=== PATIENT | female | born 1990 | race Hispanic/Latino ===

== ENCOUNTER 2022-05-14 05:44 | Inpatient (IN) | payer OTHER ==
[2022-05-12 12:06] LABS: Hematocrit 30.9 % (30.3-42.9); Hemoglobin 10.3 gm/dl (10.1-14.3); Mean Corpuscular HGB Conc 33 % (30-34); Mean Corpuscular Volume 88 fl (79-97); Platelet Count 250 K/mm3 (140-440); Red Blood Count 3.51 M/mm3 (3.65-5.03)
--- NOTE | 2022-05-13 20:22 | History and Physical Report ---
History of Present Illness Date of examination: 05/06/22 Date of admission: 05/14/2022 Chief complaint: section History of present illness: Patient is a for repeat section and bilateral salpingectomy. Voices no complaints. +FM. Denies contractions, leakage of fluid, and vaginal bleeding. Past History Past Medical History: no pertinent history Past Surgical History: section Family/Genetic History: hypertension, cancer Social history: no significant social history - Obstetrical History : 6 Para: 1 Hx # Term Pregnancies: 1 Number of Pregnancies: 9 Spontaneous Abortions: 4 Induced : 0 Number of Living Children: 1 Medications and Allergies Allergies Allergy/AdvReac Type Severity Reaction Status Date / Time No Known Allergies Allergy Unverified 05/08/22 16:55 Home Medications Medication Instructions Recorded Confirmed Last Taken Type ALPRAZolam [Xanax TAB] 0.5 mg PO BID PRN 05/12/22 05/12/22 Unknown History - Vital Signs Vital signs: Vital Signs Temp Pulse Resp BP Pulse Ox 99 F 92 H 16 136/73 98 05/12/22 11:20 05/12/22 11:20 05/12/22 11:20 05/12/22 11:20 05/12/22 11:20 Temp Pulse Resp BP Pulse Ox 99 F 92 H 16 136/73 98 05/12/22 11:20 05/12/22 11:20 05/12/22 11:20 05/12/22 11:20 05/12/22 11:20 - Physical Exam Abdomen: Positive: normal appearance, soft, normal bowel sounds. Negative: distention, tenderness Extremities: - Obstetrical FHR: category 1 Uterine Contraction Monitor Mode: External Uterine Contraction Pattern: Absent Results Result Diagrams: 05/14/22 06:25 All other labs normal. Assessment and Plan Patient for repeat section and bilateral salpingectomy Risks of procedure reviewed including pain, bleeding, infection, damage to surrounding tissues and structures, need for further procedures. Consents signed Ancef 2 g preop antibiotics Type and screen, CBC TO OR as scheduled - Patient Problems (1) 39 weeks gestation of Current Visit: Yes Status: Acute (2) History of delivery Current Visit: Yes Status: Acute (3) Sterilization Current Visit: Yes Status: Acute
[2022-05-14] MEDS ORDERED: LACTATED RINGERS 1,000 ML ONE ×2 (06:19→08:34)
[2022-05-14 06:43] LABS: Basophils % (Auto) 0.3 % (0.0-1.8); Eosinophils # (Auto) 0.3 K/mm3 (0.0-0.4); Eosinophils % (Auto) 2.7 % (0.0-4.3); Hematocrit 32.7 % (30.3-42.9); Hemoglobin 10.9 gm/dl (10.1-14.3); Lymphocytes # (Auto) 2.7 K/mm3 (1.2-5.4); Lymphocytes % (Auto) 27.5 % (13.4-35.0); Mean Corpuscular HGB Conc 33 % (30-34); Mean Corpuscular Volume 88 fl (79-97); Monocytes # (Auto) 0.8 K/mm3 (0.0-0.8); Monocytes % (Auto) 7.7 % (0.0-7.3); Platelet Count 258 K/mm3 (140-440); Red Blood Count 3.71 M/mm3 (3.65-5.03); Red Cell Distribution Width 13.5 % (13.2-15.2)
--- NOTE | 2022-05-14 06:57 | Anesthesia Day of Surgery ---
Anesthesia Day of Surgery - Day of Surgery Patient Examined: Yes Patient H&P Reviewed: Yes Patient is NPO: Yes
--- NOTE | 2022-05-14 06:57 | Anesthesia Consultation ---
Anesthesia Consult and Med Hx Date of service: 05/14/22 - Airway Anesthetic Teeth Evaluation: Good ROM Head & Neck: Adequate Mental/Hyoid Distance: Adequate Mallampati Class: Class II Intubation Access Assessment: Good - Pulmonary Exam CTA: Yes - Cardiac Exam Cardiac Exam: RRR - Pre-Operative Health Status ASA Pre-Surgery Classification: ASA2 Proposed Anesthetic Plan: Spinal (h/o anxiety) - Pulmonary Hx Smoking: Yes Hx Asthma: No - Cardiovascular System Hx Hypertension: No - Central Nervous System Hx Seizures: No Hx Psychiatric Problems: No - Endocrine Hx Renal Disease: No Hx Hypothyroidism: No Hx Hyperthyroidism: No - Hematic Hx Anemia: No Hx Sickle Cell Disease: No - Other Systems Hx Alcohol Use: No Hx Cancer: No
[2022-05-14] MEDS ORDERED: FAMOTIDINE 20 MG/2 ML INJ IV SCH (07:00)
[2022-05-14] MEDS ORDERED: ceFAZolin/Water 2 GM/20 ML 2 GM/20 ML SYRINGE IV NR (07:00)
[2022-05-14] MEDS ORDERED: METOCLOPRAMIDE 10 MG/2 ML INJ IV SCH (07:00)
[2022-05-14] MEDS ORDERED: LACTATED RINGERS 1,000 ML IV SCH ×2 (07:00→16:00)
[2022-05-14] MEDS ORDERED: BICITRA ORAL LIQD 30ML PO SCH (07:00)
[2022-05-14] MEDS ORDERED: OXYTOCIN DRIP 30 UNITS/500 ML BAG IV SCH ×2 (07:00→11:00)
[2022-05-14] MEDS ORDERED: SODIUM CHLORIDE 0.9% IRR 1,500 ML BOTTLE IR ONE (08:32)
[2022-05-14] MEDS ORDERED: WATER FOR IRRIG STERILE 1,500 ML BOTTLE IR ONE (08:32)
[2022-05-14] MEDS ORDERED: dexAMETHasone 20 MG/5 ML VIAL ONE (08:34)
[2022-05-14] MEDS ORDERED: BUPIVACAINE/PF (0.5%) 5 MG/1 ML 30 ML VIAL INFILTRATI ONE (08:34)
[2022-05-14] MEDS ORDERED: SODIUM CHLORIDE 0.9% 100 ML ONE (08:34)
[2022-05-14] MEDS ORDERED: ONDANSETRON 4 MG/2 ML INJ ONE (08:34)
[2022-05-14] MEDS ORDERED: PHENYLEPHRINE/NS 1,000 MCG/10 ML SYRINGE (OR USE) IV ONE (08:34)
[2022-05-14] MEDS ORDERED: KETOROLAC 30 MG/1 ML INJ ONE (09:37)
[2022-05-14] MEDS ORDERED: LANOLIN/ZINC/DIMETHICONE (LANSINOH) 7 GM TP PRN (10:06)
[2022-05-14] MEDS ORDERED: SIMETHICONE 80 MG CHEW TAB PO PRN (10:06)
[2022-05-14] MEDS ORDERED: WITCH HAZEL/ GLYCERIN PAD TP PRN (10:06)
[2022-05-14] MEDS ORDERED: NALOXONE 0.4 MG/1 ML INJ IV PRN (10:06)
[2022-05-14] MEDS ORDERED: ONDANSETRON 4 MG/2 ML INJ IV PRN (10:06)
--- NOTE | 2022-05-14 10:19 | Operative Report ---
Operative Report Operative Report: Date of Procedure: May 14, 2022 Preoperative diagnosis: IUP @39 weeks 4 days, history of , desire for permanent sterilization Postoperative diagnosis: same, s/p repeat and tubal ligation Procedure: Low transverse section with vacuum assistance and bilateral salpingectomy Surgeon: Ruth Cade MD Therapeutic Massage Technician: AUSTIN Anesthesia: Spinal Complications: none EBL: 486 ml UOP: 50 ml, clear urine at the end of procedure Indications: Repeat section Findings: 3300 g male infant in ALLEN position cephalic presentation with Apgars 7 & 9 Amniotic fluid clear Fallopian tubes normal in appearance bilaterally Ovaries normal in appearance bilaterally Procedure: The patient was taken to the operating room where epidural anesthesia was found to be adequate. 2 g Ancef was given prior to the procedure. She was then prepared and draped in the usual sterile fashion in the dorsal supine position with a leftward tilt. A Pfannenstiel skin incision was made with the scalpel and carried through to the underlying layer of fascia with the bovie. The fascia was incised in the midline and the incision extended laterally. The superior aspect of the fascial incision was then grasped with the Isabel's clamps, elevated, and the underlying rectus muscles dissected off bluntly and with sharp dissection using bovie. Attention was then turned to the inferior aspect of this incision which, in a similar fashion, was grasped, tented up with the Isabel clamps, and the rectus was dissected off bluntly and with sharp dissection. The rectus muscles were then in the midline, and the peritoneum identified and entered bluntly. The peritoneal incision was then e xtended superiorly and inferiorly with good visualization of the bladder. Ghulam retractor was placed. The bladder blade was then inserted and the vesicouterine peritoneum identified, grasped with the pick ups, and entered sharply with the Metzenbaum scissors. This incision was then extended laterally and the bladder flap created digitally. The bladder blade was then reinserted and the lower uterine segment incised in a transverse fashion with the scalpel. The uterine incision was then extended laterally digitally. The bladder blade was then removed and the infant was delivered via ALLEN position after application of the Kiwi vacuum system. No pop offs. Tight nuchal cord reduced. The nose and mouth were suctioned with the bulb suction and the cord clamped and cut. The was handed off to the waiting pediatricians.The placenta was then removed; the uterus exteriorized and cleared of all clots and debris. The uterine incision was repaired with 0 vicryl in a running locked fashion to obtain excellent hemostasis. An imbrication layer was done. The right tube was grasped with Andrade clamps. An Allis clamp was placed underneath the fallopian tube and the mesosalpinx was ligated using the Bovie cautery. Cautery applied to the tubal stump and along the remaining mesosalpinx for hemostasis. The left tube was treated in a similar fashion. An area of oozing along the remaining mesosalpinx was noted on the right side and sutured using 2-0 Vicryl. Hemostasis was noted. Uterus returned to the abdomen. The rectus muscle was reapproximated with 2-0 vicryl. The fascia was reapproximated with 0 vicryl in a running fashion. Subcutaneous layer reapproximated with interrupted sutures of 2-0 vicryl in 2 layers. The skin was closed with 4-0 monocryl subcuticular stitch and the incision sealed with Steri-strips.The patient tolerated the procedure well. Sponge, lap, needle counts correct X 2. The patient was taken to the recovery room in a stable condition.
[2022-05-14] MEDS: oxyCODONE /ACETAMINOPHEN 5-325MG TAB PO PRN (13:15)
[2022-05-14] MEDS: KETOROLAC 30 MG/1 ML INJ IV SCH ×2 (15:57→20:56)
[2022-05-14] MEDS: MORPHINE 4 MG/1 ML INJ IV PRN ×2 (17:07→23:16)
[2022-05-14] MEDS ORDERED: NICOTINE 21 MG/24 HR PATCH TD SCH (19:00)
[2022-05-14] MEDS ORDERED: NICOTINE 14 MG/24 HR PATCH TD SCH (20:00)
[2022-05-14 23:59] LABS: Hemoglobin 9.6 gm/dl (10.1-14.3)
[2022-05-15] MEDS: oxyCODONE /ACETAMINOPHEN 5-325MG TAB PO PRN ×4 (02:47→22:34)
[2022-05-15] MEDS: MORPHINE 4 MG/1 ML INJ IV PRN (06:27)
--- NOTE | 2022-05-15 08:15 | Progress Note ---
Assessment and Plan VSSAF, postop H&H 9.6/29.7 - asymptomatic for anemia d/t acute blood loss. incision dressed - D&I. lochia scant, fundus firm. - Patient Problems (1) delivery delivered Current Visit: Yes Status: Acute Plan to address problem: Continue postop pathway Advance diet and activity as tolerated (2) Sterilization Current Visit: Yes Status: Acute Subjective - Subjective Date of service: 05/15/22 Principal diagnosis: Postop day #1 Patient reports: appetite normal, voiding normally, pain well controlled, flatus, ambulating normally, no dizzy ambulation, no nauseated [place]: doing well, bottle feeding Objective - Vital Signs Latest vital signs: Vital Signs Temp Pulse Resp BP BP Pulse Ox Pulse Ox 05/15/22 07:21 98.5 F 72 20 145/86 98 05/15/22 06:27 18 05/15/22 05:00 97.8 F 73 18 128/71 97 05/15/22 02:47 18 05/15/22 00:43 98.2 F 80 20 143/68 97 05/14/22 23:16 18 05/14/22 21:20 98.5 F 55 L 18 133/69 97 05/14/22 20:56 18 05/14/22 17:43 100 05/14/22 16:26 98.5 F 64 18 136/69 97 05/14/22 13:30 97.4 F L 05/14/22 12:15 18 117/69 100 05/14/22 11:30 97.6 F 60 17 120/57 99 05/14/22 11:15 64 12 101/47 98 05/14/22 11:00 97.6 F 60 19 108/51 98 05/14/22 10:45 67 16 107/49 97 05/14/22 10:40 59 L 13 100/49 98 05/14/22 10:35 64 16 100/58 98 05/14/22 10:31 94.5 F L 64 15 114/63 98 Intake and Output 05/14/22 05/15/22 05/15/22 23:59 07:59 15:59 Intake Total 940 120 Output Total 1900 600 Balance -960 -480 Intake: IV 100 ceFAZolin 2 GM In NaCl 0. 100 9% 100 ml @ 200 mls/hr IV Q8H [facility] Rx#:[id number] Oral 360 Intake, Free Water 480 120 Output: Urine 1900 600 Indwelling Catheter 1400 Void 500 600 Other: Total, Intake Amount 360 Total, Output Amount 500 600 # Voids Void 1 - Exam Cardiovascular: Present: Regular rate Lungs: Present: Normal air movement Abdomen: Present: normal appearance, soft Vulva: both: normal Uterus: Present: normal, firm, fundal height below umbilicus Deep Tendon Reflex Grade: Normal +2 Incision: Present: normal, dry, dressed - Labs Labs: Abnormal lab results 05/14/22 Range/Units 23:28 Hgb 9.6 L (10.1-14.3) gm/dl Hct 29.0 L (30.3-42.9) %
[2022-05-15] MEDS: IBUPROFEN 800 MG TAB PO SCH ×2 (09:59→17:37)
[2022-05-16] MEDS: IBUPROFEN 800 MG TAB PO SCH (04:01)
[2022-05-16 08:42] VITALS: BP 137/73
--- NOTE | 2022-05-16 08:44 | Discharge Summary ---
Providers - Providers Date of Admission: 05/14/22 05:44 Date of discharge: 05/16/22 Attending physician: NGOZI CALLAHAN MD none Primary care physician: NGOZI CALLAHAN MD Hospitalization Reason for admission: repeat section Condition: Good Hospital course: Patient presented at 39w for repeat section and tubal ligation. See operative note for additional details. Patient recovered well postoperatively and baby at bedside doing well. Appropriate postop hemoglobin of 9.6. Blood pressures within normal limits. Pain well controlled. Stable for discharge on POD #2. Disposition: 01 HOME / SELF CARE / HOMELESS Final Discharge Diagnosis (Prints w/discharge instructions): s/p delivery - Discharge Diagnoses (1) 39 weeks gestation of Status: Acute (2) History of delivery Status: Acute (3) Sterilization Status: Acute Core Measure Documentation - Palliative Care Palliative Care/ Comfort Measures: Not Applicable - Core Measures Any of the following diagnoses?: none Exam - Constitutional Vitals: Temp Pulse Resp BP Pulse Ox 98.0 F 73 16 137/73 99 05/16/22 07:52 05/16/22 07:52 05/16/22 07:52 05/16/22 07:52 05/16/22 07:52 General appearance: Present: no acute distress, well-nourished - Respiratory Respiratory effort: normal - Extremities Extremities: pulses symmetrical, No edema - Abdominal General gastrointestinal: Present: soft, non-tender, non-distended Female genitourinary: Present: normal - Integumentary Integumentary: Present: clear, warm, dry - Psychiatric Psychiatric: appropriate mood/affect, intact judgment & insight - Additional findings Additional findings: Incision C/D/I with Steristrips Plan Activity: advance as tolerated, other Weight Bearing Status: Full Weight Bearing Diet: regular Wound: keep clean and dry Follow up with: NGOZI CALLAHAN MD [Primary Care Provider] - 7 Days Prescriptions: Docusate Sodium [Colace] 100 mg PO BID #60 capsule Lidocain2.5%/Prilocai2.5% [Emla] 1 applic TP ONCE #1 tube Ferrous Sulfate [Feosol 325 MG tab] 325 mg PO QDAY #30 tablet Ibuprofen [Motrin 800 MG tab] 800 mg PO Q8HR #30 tablet oxyCODONE /ACETAMINOPHEN [Percocet 5/325] 1 tab PO Q6HR PRN #20 tablet PRN Reason: Pain Vit-Fe Fumar-FA [ Vitamin] 1 tab PO QDAY #30 tablet
[2022-05-16] MEDS: oxyCODONE /ACETAMINOPHEN 5-325MG TAB PO PRN (09:01)
--- NOTE | 2022-05-16 14:13 | Post Anesthesia Evaluation ---
- Post Anesthesia Evaluation Other Comments: Pt discharged, OBGYN note reviewed, no problems noted.
[2022-05-16] MEDS ORDERED: FAMOTIDINE 20 MG/2 ML INJ IV ONE (15:32)
[2022-05-16] MEDS ORDERED: METOCLOPRAMIDE 10 MG/2 ML INJ IV ONE (15:32)
[2022-05-16] MEDS ORDERED: AZITHROMYCIN/NS 500 MG/250 ML 500 MG/250 ML BAG IV ONE (15:32)
[2022-05-16] MEDS ORDERED: BICITRA ORAL LIQD 30ML PO ONE (15:32)
[2022-05-16] MEDS ORDERED: ceFAZolin/Water 2 GM/20 ML 2 GM/20 ML SYRINGE IV NR (16:00)
[2022-05-16] MEDS ORDERED: LACTATED RINGERS 1,000 ML IV SCH (16:00)
[2022-05-16] MEDS ORDERED: OXYTOCIN DRIP 30 UNITS/500 ML BAG IV SCH (16:00)
== END 2022-05-16 11:05 | disposition home or self-care (01) | DRG 765 ==
LOC: APU 05:44 → OB 12:09
PROVIDERS: ADMIT Student in an Organized Health Care Education/Training Program; ATTEND Student in an Organized Health Care Education/Training Program
PROC: 10D00Z1 Extraction of Products of Conception, Low, Open Approach (ICD-10-PCS; principal; 2022-05-14)
PROC: 0UB70ZZ Excision of Bilateral Fallopian Tubes, Open Approach (ICD-10-PCS; 2022-05-14)
DX: O34.211 Maternal care for low transverse scar from previous cesarean delivery (principal); D62 Acute posthemorrhagic anemia; Z3A.39 39 weeks gestation of pregnancy; Z37.0 Single live birth; Z20.822 Contact with and (suspected) exposure to COVID-19; O90.81 Anemia of the puerperium; Z30.2 Encounter for sterilization
CPT/HCPCS: 36415; 85014; 85018; 85025; 85027; 86592; 86850; 86900; 86901; 88302; 96360; 96361; 96365; 96366; G0378; J3490; J7121; J0690; J1100; J1885; J2270; J2370; J2405; J2765; J7120; U0003